=== PATIENT | male | born 1955 | race Caucasian/White ===

== ENCOUNTER 2021-06-09 18:35 | Observation (INO) ==
[2021-06-09] MEDS ORDERED: Aspirin 81 MG TAB.CHEW ONE (18:48)
[2021-06-09] MEDS ORDERED: 0.9 % Sodium Chloride 1,000 ML ONE (18:48)
[2021-06-09] MEDS ORDERED: *HR* Heparin 5,000 UNIT/ML VIAL ONE (18:48)
[2021-06-09] MEDS ORDERED: *HR* Ticagrelor 90 MG TABLET ONE (18:48)
[2021-06-09] MEDS ORDERED: Heparin 1,000 UNITS/500 mL 0 ML ONE (18:51)
[2021-06-09] MEDS ORDERED: *HR* Heparin 10,000 UNIT/10 ML VIAL ONE (18:51)
[2021-06-09] MEDS ORDERED: *HR* Bivalirudin 250 MG VIAL IVC ONE (18:51)
[2021-06-09] MEDS ORDERED: Nitroglycerin 1,000 MCG/5 ML VIAL IV ONE (18:52)
[2021-06-09] MEDS ORDERED: ISOVUE-370 200 ML INFUS..BTL ONE (18:52)
[2021-06-09] MEDS ORDERED: Aspirin 81 MG TAB.CHEW PO ONE (18:56)
[2021-06-09 19:34] LABS: Basophils # 0.1 K/mcL (0.0-0.2); Eosinophils # 0.4 K/mcL (0.0-0.6); Eosinophils % 5.5 %; Hematocrit 43.6 % (37.5-50.1); Hemoglobin 15.1 g/dL (12.9-16.9); Immature Granulocytes % 0.5 % (0-4); Lymphocytes # 1.6 K/mcL (0.6-4.6); Lymphocytes % 19.7 %; Mean Corpuscular HGB Conc 34.6 g/dL (31.6-35.5); Mean Corpuscular Hemoglobin 30.8 pg (28.0-33.3); Mean Corpuscular Volume 88.8 fL (83.0-100.0); Mean Platelet Volume 10.8 fL (9.4-12.4); Monocytes # 1.3 K/mcL (0.0-1.3); Monocytes % 15.8 %; Neutrophils # 4.6 K/mcL (1.6-8.9); Platelet Count 180 K/mcL (140-400); Red Blood Count 4.91 M/mcL (4.19-5.50); Segmented Neutrophils % 57.5 %
[2021-06-09 19:42] LABS: Activated Partial Thrombo Time 32.6 Seconds (26.0-36.0)
[2021-06-09 19:53] LABS: Alanine Aminotransferase 14 Units/L (7-52); Albumin 4.4 g/dL (3.5-5.7); Albumin/Globulin Ratio 1.5 (1.1-2.2); Alkaline Phosphatase 90 Units/L (34-104); Aspartate Amino Transferase 19 Units/L (13-39); BUN/Creatinine Ratio 17 (6-26); Bilirubin,Direct 0.1 mg/dL (0.0-0.2); Bilirubin,Indirect 0.6 mg/dL (0.0-1.0); Bilirubin,Total 0.7 mg/dL (0.3-1.0); Blood Urea Nitrogen 14 mg/dL (8-23); Calcium 9.6 mg/dL (8.6-10.3); Carbon Dioxide 29 mEq/L (23-29); Chloride 92 mEq/L (98-107); Globulin 2.9 g/dL (2.4-3.5); Glucose 85 mg/dL (70-105); Lipase 28 Units/L (11-82); Osmolality,Calculated 264 (280-300); Potassium 3.8 mEq/L (3.5-5.1); Sodium 127 mEq/L (136-145); Total Protein 7.3 g/dL (6.4-8.9); eGFR For African Americans > 60 (> 60); eGFR For Non-African Americans > 60 (> 60)
[2021-06-09 19:55] LABS: Troponin I < 0.03 ng/mL (< 0.04)
[2021-06-09 20:54] LABS: Bilirubin,Urine Negative (Negative); Blood,Urine Negative (Negative); Clarity,Urine Clear (Clear); Color,Urine Colorless (Yellow); Glucose,Urine (UA) Normal (Normal); Ketones,Urine Negative (Negative); Leukocyte Esterase,Urine Negative (Negative); Nitrite,Urine Negative (Negative); PH,Urine 6.5 pH Units (5.0-8.0); Protein,Urine Negative (Neg-Trace); Urobilinogen,Urine Normal (Normal)
[2021-06-09] MEDS ORDERED: Ondansetron 4 MG/2 ML VIAL IVP PRN (21:16)
[2021-06-09] MEDS ORDERED: Melatonin 3 MG TABLET PO PRN (21:16)
[2021-06-09] MEDS ORDERED: Naloxone 0.4 MG/ML INJ IVP PRN (21:16)
[2021-06-09] MEDS ORDERED: Nitroglycerin 0.4 MG TAB.SUBL SL PRN (21:18)
[2021-06-09] MEDS: carvediloL 6.25 MG TABLET PO SCH (23:18)
[2021-06-10] MEDS ORDERED: 0.9 % Sodium Chloride 1,000 ML ONE (00:44)
[2021-06-10] MEDS ORDERED: 0.9 % Sodium Chloride 1,000 ML IVC SCH (00:45)
[2021-06-10 01:06] LABS: Hematocrit 38.9 % (37.5-50.1); Mean Corpuscular HGB Conc 34.2 g/dL (31.6-35.5); Mean Corpuscular Volume 87.8 fL (83.0-100.0); Mean Platelet Volume 9.7 fL (9.4-12.4); Platelet Count 147 K/mcL (140-400); Red Blood Count 4.43 M/mcL (4.19-5.50); Red Cell Distribution Width 11.9 % (11.5-14.5); White Blood Count 7.1 K/mcL (4.3-11.1)
[2021-06-10 01:07] LABS: Hemoglobin 13.3 g/dL (12.9-16.9)
[2021-06-10 01:23] LABS: BUN/Creatinine Ratio 18 (6-26); Blood Urea Nitrogen 12 mg/dL (8-23); Calcium 8.8 mg/dL (8.6-10.3); Carbon Dioxide 25 mEq/L (23-29); Chloride 96 mEq/L (98-107); Glucose 143 mg/dL (70-105); Osmolality,Calculated 266 (280-300); Potassium 3.4 mEq/L (3.5-5.1); Sodium 127 mEq/L (136-145); eGFR For African Americans > 60 (> 60); eGFR For Non-African Americans > 60 (> 60)
[2021-06-10 07:20] VITALS: O2SAT 97
[2021-06-10] MEDS ORDERED: Regadenoson 0.4 MG/5 ML SYRINGE IVP ONE (08:33)
[2021-06-10] MEDS ORDERED: Aspirin Enteric Coated 81 MG Tablet PO SCH (09:00)
[2021-06-10] MEDS ORDERED: amLODIPine 5 MG TABLET PO SCH (09:00)
[2021-06-10 11:19] VITALS: BP 171/82; PULSE 59; TEMP 97.8
[2021-06-10] MEDS: carvediloL 6.25 MG TABLET PO SCH (11:44)
== END 2021-06-10 17:00 | disposition home or self-care (01) ==
LOC: EMEROOARM 18:35 → 3BNU 18:35 → SUATTDRO 21:10 → 3BNU 22:20
PROVIDERS: ADMIT Internal Medicine; ATTEND Internal Medicine